=== PATIENT | male | born 1990 | race Caucasian/White ===

== ENCOUNTER 2017-02-16 16:17 | Outpatient (CLI) | payer OTHER ==
--- NOTE | 2017-02-16 18:31 | Diagnostic Imaging Report ---
WALTER SAHU [facility] [id number] [facility] [address] [address] Report Submission Date: Feb 16, 2017 4:53:56 PM SALES TEAM LEADER Patient Study Name: EVAN GONZALES Date: Feb 16, 2017 4:32:07 PM SALES TEAM LEADER Modality Type: CR Gender: M Description: SPINE : 89 Institution: [facility] Physician: WALTER SAHU Examination: Plain film lumbar spine History: Low back discomfort 1 year. Findings: 3 views of the lumbar spine demonstrate normal height. No anterior compression. Slight curvature to the left. No soft tissue abnormalities. Impression: No compression deformity. If patient is experiencing neurologic symptoms, consider obtaining MRI. Electronically signed on Feb 16, 2017 4:53:56 PM SALES TEAM LEADER by: Lit TRIPP
== END 2017-02-16 16:18 ==
LOC: LAB 16:17
PROVIDERS: ATTEND Physician Assistant
DX: M54.5 Low back pain (principal); Z20.2 Contact with and (suspected) exposure to infections with a predominantly sexual mode of transmission
CPT/HCPCS: 36415; 72100; 86703; 86803; 87491; 87591